=== PATIENT | female | born 1970 | race African-American/Black ===

== ENCOUNTER → 2017-05-25 | Outpatient (CLI) | payer OTHER ==
[2017-05-25 13:16] LABS: CREATININE 0.6 mg/dL (0.6-1.0); GFR 128.6; POTASSIUM 3.9 mmol/L (3.5-5.1)
== END | disposition home or self-care (01) ==
LOC: LAB 12:31
PROVIDERS: ATTEND Psychiatry & Neurology Neurology
DX: R51 Headache (principal)
CPT/HCPCS: 36415; 80051; 82565; 84450; 84460; 84520

== ENCOUNTER 2017-11-06 17:50 | Inpatient (IN) | payer OTHER ==
[2017-11-06 19:33] LABS: ADD MAN DIFF? NO
[2017-11-06] MEDS: FOLIC ACID 1 MG TABLET. PO (19:35)
[2017-11-06] MEDS: chlordiazePOXIDE HCL 25 MG CAPSULE PO (19:35)
[2017-11-06 19:36] LABS: BASO % 1 % (0-3); EOS % 1 % (0-3); HEMATOCRIT 39.2 % (36.0-47.0); HEMOGLOBIN 12.7 g/dL (12.0-15.5); LYMPH # 1.3 x10^3/uL (1.0-4.8); LYMPH % 36 % (24-48); MEAN CORPUSCULAR HEMOGLOBIN 35 pg (25-35); MEAN CORPUSCULAR HGB CONC 33 g/dL (31-37); MEAN CORPUSCULAR VOLUME 106 fL (79-100); MONO # 0.3 x10^3/uL (0.0-1.1); MONO % 8 % (0-9); NEUT % 55 % (31-73); PLATELET COUNT 111 x10^3/uL (140-400); RED BLOOD COUNT 3.69 x10^6/uL (3.50-5.40); RED CELL DISTRIBUTION WIDTH 14.9 % (11.5-14.5); WHITE BLOOD COUNT 3.6 x10^3/uL (4.0-11.0)
[2017-11-06] MEDS: THIAMINE IM 200 MG/2 ML VIAL. IM (19:36)
[2017-11-06] MEDS: ONDANSETRON PF 4 MG/2 ML VIAL. IV (19:36)
[2017-11-06] MEDS: IV NORMAL SALINE 1000ML BAG 1,000 ML IV (19:41)
[2017-11-06 19:47] LABS: INR 1.2 (0.8-1.1); PARTIAL THROMBOPLASTIN TIME 28 SEC (24-38); PROTHROMBIN TIME PATIENT 14.7 SEC (11.7-14.0)
[2017-11-06 20:34] LABS: ETHANOL 146 mg/dL (0-10)
[2017-11-06 20:34] LABS: ANION GAP 19 (6-14); BLOOD UREA NITROGEN 5 mg/dL (7-20); BUN/CREATININE RATIO 10 (6-20); CALCIUM 7.8 mg/dL (8.5-10.1); CARBON DIOXIDE 19 mmol/L (21-32); CHLORIDE 101 mmol/L (98-107); CREATININE 0.5 mg/dL (0.6-1.0); GFR 158.7; GLUCOSE 80 mg/dL (70-99); POTASSIUM 3.9 mmol/L (3.5-5.1); SODIUM 139 mmol/L (136-145)
[2017-11-06 20:43] LABS: ALBUMIN/GLOBULIN RATIO 0.8 (1.0-1.7); ALK PHOS 155 U/L (46-116); ALT (SGPT) 90 U/L (14-59); AST (SGOT) 284 U/L (15-37); LIPASE 156 U/L (73-393); MAGNESIUM 1.7 mg/dL (1.8-2.4); TOTAL BILIRUBIN 0.6 mg/dL (0.2-1.0)
[2017-11-06 20:47] LABS: THYROID STIM HORMONE (TSH) 1.289 uIU/mL (0.358-3.74)
[2017-11-06] MEDS: HYDROcodone/APAP 5/325MG 1 TAB TABLET PO (23:33)
[2017-11-07] MEDS: chlordiazePOXIDE HCL 25 MG CAPSULE PO ×3 (01:23→12:45)
[2017-11-07] MEDS: TOPIRAMATE 100 MG TABLET. PO ×2 (01:24→08:34)
[2017-11-07 04:33] LABS: ADD MAN DIFF? NO
[2017-11-07 04:36] LABS: BASO % 1 % (0-3); EOS % 1 % (0-3); HEMATOCRIT 35.5 % (36.0-47.0); HEMOGLOBIN 11.9 g/dL (12.0-15.5); LYMPH # 1.3 x10^3/uL (1.0-4.8); LYMPH % 48 % (24-48); MEAN CORPUSCULAR HEMOGLOBIN 35 pg (25-35); MEAN CORPUSCULAR HGB CONC 34 g/dL (31-37); MEAN CORPUSCULAR VOLUME 104 fL (79-100); MONO # 0.2 x10^3/uL (0.0-1.1); MONO % 8 % (0-9); NEUT # 1.2 x10^3uL (1.8-7.7); NEUT % 42 % (31-73); PLATELET COUNT 80 x10^3/uL (140-400); RED CELL DISTRIBUTION WIDTH 14.7 % (11.5-14.5); WHITE BLOOD COUNT 2.8 x10^3/uL (4.0-11.0)
[2017-11-07 04:54] LABS: ANION GAP 10 (6-14); BLOOD UREA NITROGEN 4 mg/dL (7-20); CALCIUM 8.2 mg/dL (8.5-10.1); CARBON DIOXIDE 25 mmol/L (21-32); CHLORIDE 101 mmol/L (98-107); CREATININE 0.6 mg/dL (0.6-1.0); GFR 128.6; GLUCOSE 138 mg/dL (70-99); POTASSIUM 3.8 mmol/L (3.5-5.1); SODIUM 136 mmol/L (136-145)
[2017-11-07] MEDS: LEVOTHYROXINE 25 MCG TABLET. PO (08:02)
[2017-11-07] MEDS: MULTIVITAMIN with MINERAL TABLET. PO (08:34)
[2017-11-07] MEDS: METOPROLOL TART IMMED RELEASE 50 MG TABLET. PO (08:34)
[2017-11-07] MEDS: TOPIRAMATE 25 MG TABLET. PO (08:34)
[2017-11-07] MEDS ORDERED: THIAMINE IM 200 MG/2 ML VIAL. IM (09:00)
== END 2017-11-07 13:00 | disposition left against medical advice (07) | DRG 894 ==
LOC: ER 17:50 → ED HOLD 18:37 → 6 SOUTH 21:46
DX: F10.129 Alcohol abuse with intoxication, unspecified (principal); G92 Toxic encephalopathy; E03.9 Hypothyroidism, unspecified; Y90.6 Blood alcohol level of 120-199 mg/100 ml; E11.9 Type 2 diabetes mellitus without complications; F17.210 Nicotine dependence, cigarettes, uncomplicated; G40.909 Epilepsy, unspecified, not intractable, without status epilepticus; I10 Essential (primary) hypertension; Z80.0 Family history of malignant neoplasm of digestive organs; D69.6 Thrombocytopenia, unspecified; R51 Headache; Z98.51 Tubal ligation status; Z53.21 Procedure and treatment not carried out due to patient leaving prior to being seen by health care provider; R74.8 Abnormal levels of other serum enzymes
CPT/HCPCS: 36415; 80048; 80053; 83690; 83735; 84443; 85025; 85610; 85730; 96361; 96372; 96374; 99285; 99285-25; 99406; G0480; J2405; J7030

== ENCOUNTER → 2017-11-06 | Outpatient (CLI) | payer OTHER ==
[2017-11-06 16:17] LABS: BARBITURATES NEG (NEG); BENZODIAZEPINES NEG (NEG); CANNABINOIDS NEG (NEG); COCAINE NEG (NEG); METHADONE NEG (NEG); OPIATES POS (NEG); PHENCYCLIDINE NEG (NEG)
[2017-11-06 16:18] LABS: AMPHETAMINE/METHAMPHETAMINE NEG (NEG); ETHANOL, URINE POS (NEG)
[2017-11-06 16:23] LABS: AMMONIA 38 mcmol/L (11-34)
[2017-11-06 17:09] LABS: ETHANOL 173 mg/dL (0-10)
== END | disposition home or self-care (01) ==
LOC: LAB 15:42
DX: F10.10 Alcohol abuse, uncomplicated (principal); E03.9 Hypothyroidism, unspecified; E11.9 Type 2 diabetes mellitus without complications; I60.9 Nontraumatic subarachnoid hemorrhage, unspecified; E55.9 Vitamin D deficiency, unspecified; G92 Toxic encephalopathy; R56.9 Unspecified convulsions; R74.8 Abnormal levels of other serum enzymes; Z98.890 Other specified postprocedural states
CPT/HCPCS: 36415; 80307; 82140; G0480

== ENCOUNTER → 2017-11-20 | Outpatient (CLI) | payer OTHER | END | disposition home or self-care (01) | LOC: RT 12:04 | DX: R56.9 Unspecified convulsions (principal) | CPT/HCPCS: 95816 ==

== ENCOUNTER 2018-05-17 11:10 | Emergency (ER) | payer OTHER ==
[2018-05-17 12:18] LABS: ADD MAN DIFF? NO
[2018-05-17 12:21] LABS: BASO % 1 % (0-3); EOS % 1 % (0-3); HEMATOCRIT 24.2 % (36.0-47.0); HEMOGLOBIN 8.5 g/dL (12.0-15.5); LYMPH # 1.9 x10^3/uL (1.0-4.8); LYMPH % 23 % (24-48); MEAN CORPUSCULAR HEMOGLOBIN 39 pg (25-35); MEAN CORPUSCULAR HGB CONC 35 g/dL (31-37); MEAN CORPUSCULAR VOLUME 111 fL (79-100); MONO # 0.5 x10^3/uL (0.0-1.1); MONO % 6 % (0-9); NEUT # 5.8 x10^3uL (1.8-7.7); NEUT % 70 % (31-73); PLATELET COUNT 99 x10^3/uL (140-400); RED BLOOD COUNT 2.19 x10^6/uL (3.50-5.40); WHITE BLOOD COUNT 8.2 x10^3/uL (4.0-11.0)
[2018-05-17 12:33] LABS: INR 2.8 (0.8-1.1); PROTHROMBIN TIME PATIENT 28.7 SEC (11.7-14.0)
[2018-05-17 12:45] LABS: ANION GAP 14 (6-14); BLOOD UREA NITROGEN 6 mg/dL (7-20); BUN/CREATININE RATIO 5 (6-20); CARBON DIOXIDE 20 mmol/L (21-32); CHLORIDE 94 mmol/L (98-107); CREATININE 1.2 mg/dL (0.6-1.0); GFR 57.5; GLUCOSE 200 mg/dL (70-99); POTASSIUM 3.1 mmol/L (3.5-5.1); SODIUM 128 mmol/L (136-145)
[2018-05-17 12:47] LABS: ETHANOL < 10 mg/dL (0-10)
[2018-05-17 12:59] LABS: ALBUMIN 1.8 g/dL (3.4-5.0); ALBUMIN/GLOBULIN RATIO 0.4 (1.0-1.7); ALK PHOS 179 U/L (46-116); ALT (SGPT) 36 U/L (14-59); AST (SGOT) 108 U/L (15-37); TOTAL BILIRUBIN 22.6 mg/dL (0.2-1.0); TOTAL PROTEIN 6.6 g/dL (6.4-8.2)
[2018-05-17 13:00] LABS: AMMONIA 71 mcmol/L (11-34)
[2018-05-17] MEDS ORDERED: POTASSIUM CHLORIDE 20MEQ 50 ML IV (13:00)
[2018-05-17] MEDS: IV NORMAL SALINE 1000ML BAG 1,000 ML IV (13:06)
[2018-05-17] MEDS: POTASSIUM CHLORIDE 20 MEQ TABLET.ER. PO (13:06)
[2018-05-17] MEDS ORDERED: LACTULOSE 20 GM/30 ML SOLUTION. PO (13:30)
[2018-05-17 14:15] LABS: PLT ESTIMATE DECREASED (ADEQUATE)
[2018-05-17 14:16] LABS: TARGET CELLS PRESENT
[2018-05-17] MEDS ORDERED: PHYTONADIONE 10 MG/ML AMPUL. SQ (15:30)
== END 2018-05-17 15:18 | disposition other institution (70) ==
LOC: ER 11:10 → 5 SOUTH 13:30
DX: R17 Unspecified jaundice (principal); E87.1 Hypo-osmolality and hyponatremia; D64.9 Anemia, unspecified; K72.90 Hepatic failure, unspecified without coma; E87.6 Hypokalemia; E72.9 Disorder of amino-acid metabolism, unspecified; Z87.820 Personal history of traumatic brain injury
CPT/HCPCS: 36415; 76705; 80053; 82140; 85025; 85610; 99285-25; G0480; J7030